=== PATIENT | male | born 1985 | race Two or more races ===

== ENCOUNTER 2022-08-04 07:51 | Emergency (ER) | payer MEDICAID, SELFPAY ==
--- NOTE | ~2022-08-04 | XR_ITS ---
EXAMINATION: XR CHEST CLINICAL INFORMATION: CPR performed. COMPARISON: 08/13/2016 chest radiograph. TECHNIQUE: Frontal view of the chest was obtained. FINDINGS: The lungs are clear. The heart and mediastinal structures are unremarkable. The visualized osseous structures are unremarkable. XR/XR chest 1V IMPRESSION: No acute cardiopulmonary process.
--- NOTE | 2022-08-04 07:59 | ED_ITS ---
HPI - Overdose General Chief Complaint: Overdose Stated Complaint: OD,NARCAN GIVEN W/GOOD RESULT PER EMS Time Seen by Provider: 08/04/22 07:58 Source: patient, family and EMS Mode of arrival: EMS Limitations: no limitations History of Present Illness HPI Narrative: Patient was smoking drugs and went unconscious, according to family he stopped breathing, family started compressions and pushed narcan up the nose. patient thought he was smoking crack. complaint: accidental overdose Onset (ago): minute(s) Timing confirmed by: family member Intent: other (wanted to get high) How Overdose Was Discovered: called 911 Context: Accidental Overdose: wanted to get high Related Data Allergies Allergy/AdvReac Type Severity Reaction Status Date / Time No Known Allergies Allergy Unverified 12/31/19 15:43 [No Known Allergies*] Review of Systems Review of Systems: Yes all other systems are reviewed and are negative Constitutional: Comments: nausea Neurologic: Denies Sensory deficit (Neuro) [facility] Social History Social History Alcohol intake: current Smoked in Last 30 Days: Yes Use of substances other than those prescribed or required for medical reasons: Yes Substance Use Type: Crack/Cocaine and Marijuana Substance Use Frequency: Chronic Longstanding Last Used Substance: Just Prior to Admission Advance Directives: No Physical Exam Vital Signs: Vital Signs: Last Vital Signs Temp 98.3 F 08/04/22 12:11 Pulse 68 08/04/22 12:11 Resp 20 08/04/22 12:11 BP 105/71 08/04/22 12:11 Pulse Ox 99 08/04/22 12:11 O2 Del Method Room Air 08/04/22 12:11 BMI result Body Mass Index 25.2 Const: Other: male lethargic but easily arousable Nutritional Appearance: average body habitus Orientation/consciousness: or iented to person and patient oriented x3 Limitations: no limitations HEENT: Head: Yes normal to inspection Ears: external ears normal General nose exam: Normal external nose present Mouth: Normal oral and palatal mucosa present and oropharynx normal Throat: Yes posterior oropharynx normal Eyes: Other: pinpoint pupils Neck: Other: supple Neck: Yes normal visual inspection Chest: Chest palpation & inspection: normal inspection of the chest Resp: Auscultation: clear to auscultation bilaterally Cardio: Jugular venous distension: no JVD Rate: regular rate Rhythm: regular rhythm Heart sounds: S1 normal heart sound present and S2 normal heart sound present GI: Inspection: Yes normal to inspection Palpation (GI): Soft to palpation, nontender and No hepatosplenomegaly present Auscultation: normal bowel sounds : General: Yes no CVA tenderness Back/Spine/Pelvis: Back: no CVA tenderness Skin: General skin exam: no rashes or lesions noted Neuro: General: oriented to person and patient oriented x3 Cranial nerves: Yes CN's II-XII intact bilaterally Motor exam (neuro): 5/5 motor strength present throughout Sensory Exam: No Sensory deficit (Neuro) Extrem: General: Yes normal to inspection Psych: Appearance: grossly normal Course Reevaluation(s) Reevaluation #1: still awaiting care team evaluation, patient resting comfortably easily arousable Time: 12:53 Reevaluation #2: TERRELL bates completed will dc home on narcan Time: 13:14 Medical Decision Making Differential Diagnosis Differential Diagnoses: The differential diagnosis associated with the presentation includes (opiate overdose, pneumothorax, rib fracture, pneumonmediastinum, polysubstance abuse) Admission/Observation Consideration of admission/observation: Escalation of care including admission/observation considered (Observation considered if the patient had became unarousable) Consult Healthcare Provider Management of the patient was discussed with: Behavioral Health Provider Lab Data [facility] Lab Attestation statement: I reviewed the patient's lab results. 08/04/22 08:19 08/04/22 08:19 Labs: Lab Results 08/04/22 08/04/22 Range/Units 08:19 08:19 WBC 6.1 (4.8-10.8) X10*3/uL RBC 4.63 (4.60-5.80) X10*6/uL Hgb 14.5 (14.0-18.0) g/dl Hct 41.6 L (42.0-52.0) % MCV 89.8 (80.0-98.0) fL MCH 31.3 (27.0-33.0) pg MCHC 34.9 (31.0-36.0) g/dl RDW 12.0 (11.0-16.0) % Plt Count 180 (160-400) X10*3/uL MPV 10.9 (9.4-12.4) fL Immature Gran % (Auto) 0.3 (0.0-0.4) % Neut % (Auto) 65.0 (45-73) % Lymph % (Auto) 23.0 (20-40) % [place] % (Auto) 9.7 (2-11) % Eos % (Auto) 1.5 (0-4) % Baso % (Auto) 0.5 (0-2) % Lymph # (Auto) 1.4 (1.2-4.9) X10*3/uL [place] # (Auto) 0.6 (0.1-1.2) X10*3/uL Eos # (Auto) 0.1 (0.0-0.4) X10*3/uL Baso # (Auto) 0.0 (0.0-0.2) X10*3/uL Abs Immat Gran (auto) 0.02 (0.00-0.03) X10*3/uL Absolute Neuts (auto) 4.0 (2.0-8.3) x10*3/uL Absolute Nucleated RBC 0.000 (0.0-0.012) X10*3/uL Nucleated RBC % (auto) 0.0 (0.0-0.2) /100WBC Sodium 137 (135-145) mmol/L Potassium 3.9 (3.3-5.1) mmol/L Chloride 102 (96-108) mmol/L Carbon Dioxide 27 (22-29) mmol/L Anion Gap 12 (12-20) BUN 11 (9-16) mg/dL Creatinine 1.21 (0.5-1.4) mg/dL Estim Creat Clear Calc 91.6 Estimated GFR > 60 Random Glucose 139 H (60-115) mg/dL Calcium 9.1 (8.4-10.2) mg/dL Ethyl Alcohol < 10 mg/dL Independent Interpretation I performed an independent interpretation of an: EKG (sinus 72, Intraventricular conduction delay, jpoint elevation) and Plain X-Ray (CXR no pneumothorax, no pneumomediastinum) Independent Historian Clinical information obtained from an independent historian. History obtained from or confirmed by: Other (girlfriend and EMS gave history) Chronic Conditions Patient?s care impacted by: Other (polysubstance abuse) Social Determinants Patient?s care significantly limited by Social Determinants of Health including: Alcoholism and drug addiction in family Discharge Plan Discharge Clinical Impression: Drug overdose, Poisoning by opiate or related narcotic Patient Disposition: Home, Self-Care Instructions: Adult Overdose (ED) Referrals: Physician,None [Primary Care Provider] - 3 days (please go to detox)
[2022-08-04 08:01] VITALS: BP 116/84; BP 178/78; PULSE 59; PULSE 81; RESP 18; TEMP 36.8; O2SAT 100; O2SAT 99; BMI 25.2
--- NOTE | 2022-08-04 08:04 | ECG_ITS ---
Test Reason : OVERDOSE Blood Pressure : / mmHG Vent. Rate : 072 BPM Atrial Rate : 072 BPM P-R Int : 162 ms QRS Dur : 096 ms QT Int : 440 ms P-R-T Axes : 068 -14 037 degrees QTc Int : 481 ms Normal sinus rhythm Prolonged QT Abnormal ECG When compared with ECG of 13-AUG-2016 15:23, No significant change was found Referred By: Juan Daniel Leal Electronically Signed By:KIMBERLY BA
[2022-08-04 08:22] LABS: MANUAL DIFF FLAG NO
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
[2022-08-04 08:33] LABS: Basophils Percent Auto 0.5 % (0-2); Eosinophils Absolute Auto 0.1 X10*3/uL (0.0-0.4); Eosinophils Percent Auto 1.5 % (0-4); Hematocrit 41.6 % (42.0-52.0); Hemoglobin 14.5 g/dl (14.0-18.0); Imm Gran Abs Auto 0.02 X10*3/uL (0.00-0.03); Imm Gran Pct Auto 0.3 % (0.0-0.4); Lymphocytes Absolute Auto 1.4 X10*3/uL (1.2-4.9); Mean Corpuscular HGB Conc 34.9 g/dl (31.0-36.0); Mean Corpuscular Hemoglobin 31.3 pg (27.0-33.0); Mean Corpuscular Volume 89.8 fL (80.0-98.0); Mean Platelet Volume 10.9 fL (9.4-12.4); Monocytes Absolute Auto 0.6 X10*3/uL (0.1-1.2); Monocytes Percent Auto 9.7 % (2-11); Platelet Count 180 X10*3/uL (160-400); Red Blood Count 4.63 X10*6/uL (4.60-5.80); White Blood Count 6.1 X10*3/uL (4.8-10.8)
[2022-08-04 08:36] LABS: Anion Gap 12 (12-20); Blood Urea Nitrogen 11 mg/dL (9-16); Calcium 9.1 mg/dL (8.4-10.2); Carbon Dioxide 27 mmol/L (22-29); Chloride 102 mmol/L (96-108); Creatinine Clr Calc Pharmacy 91.6; Estimated Glomerular Filt Rate > 60; Ethanol < 10 mg/dL; Glucose Random 139 mg/dL (60-115); Potassium 3.9 mmol/L (3.3-5.1); Sodium 137 mmol/L (135-145)
[2022-08-04 10:40] VITALS: BP 123/76; PULSE 62; RESP 15; TEMP 36.6; O2SAT 98
[2022-08-04 12:11] VITALS: BP 105/71; PULSE 68; RESP 20; TEMP 36.8; O2SAT 99
--- NOTE | 2022-08-04 12:47 | HO.SUDE ---
CARE Team met with patient in ED room 8 for substance use evaluation after he was brought in by ambulance this morning following an accidental opioid overdose. He was sleeping but woke hearing his name spoken, agreed to interview and was able to stay alert only long enough to answer a few questions. Needed to be approached a second time to finish. -Reported the only drug he uses is crack cocaine, occasional alcohol and did not intentionally use opiates -Age of first use~23 yrs old -Daily cocaine use -Only periods of abstinence are when he is incarcerated -Today was his first accidental overdose? -Patient denied having a mental illness such as depression, anxiety, bipolar disorder, psychosis, chart review indicated that patient took an intentional overdose of Seroquel and Zoloft in 2017 needed to be intubated, subsequently psychiatrically hospitalized at [facility]. Stated nothing like that has ever happened before or after that event which he said was impulsive and was under the influence of alcohol and other drugs, feels that being hospitalized was a bad experience.? -Provided education about crisis and other support options here at [facility] [place] [facility]. -Lives with his girlfriend and has a supportive local family. -Has a family member that works as a local therapist and patient would reach out to her if he needed help or resourcesWas informed that a Recovery pricing/signage team member will also check in with him. Provider Dr. Leal updated
[2022-08-04] MEDS: Naloxone HCl Nasal TAKE HOME 4 MG SPRAY NOSTRILALT (13:26)
--- NOTE | 2022-08-04 13:27 | MHC.RECOVSUP ---
Met with pt in ED8 to review resources and potential ATS. Pt is not interested in ATS or recovery coaches. Pt has no questions or concerns at this time.
== END 2022-08-04 13:48 | disposition home or self-care (01) ==
PROVIDERS: Emergency Provider Emergency Medicine
DX: R40.4 Transient alteration of awareness (principal); T40.2X1A Poisoning by other opioids, accidental (unintentional), initial encounter; Y92.009 Unspecified place in unspecified non-institutional (private) residence as the place of occurrence of the external cause
CPT/HCPCS: 36415; 71045; 80048; 82077; 85025; 93005; 99285

== ENCOUNTER 2023-01-18 13:23 | Emergency (ER) | payer SELFPAY ==
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
[2023-01-18 13:41] VITALS: BP 138/88; PULSE 68; RESP 16; TEMP 36.8; O2SAT 98; BMI 24.4
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
--- NOTE | 2023-01-18 14:22 | PC.NURSE ---
ulnar gutter splint applied by tech.
--- NOTE | 2023-01-18 14:38 | PC.NURSE ---
pt medicated per provider order.
--- NOTE | 2023-01-18 15:42 | PC.NURSE ---
pt pain level reassessed - states that his pain level did not decrease despite medication administration.
== END 2023-01-18 16:06 | disposition home or self-care (01) ==
PROVIDERS: Emergency Provider Emergency Medicine
DX: S52.602A Unspecified fracture of lower end of left ulna, initial encounter for closed fracture (principal); Y00.XXXA Assault by blunt object, initial encounter; Y93.9 Activity, unspecified; Y92.9 Unspecified place or not applicable; Y99.9 Unspecified external cause status
CPT/HCPCS: 29125; 73090; 73110; 99283

== ENCOUNTER 2023-02-01 13:45 | Outpatient (REF) | payer SELFPAY | END 2023-02-01 13:46 | disposition home or self-care (01) | LOC: HO.HOSX 13:45 | PROVIDERS: Visit Provider Physician Assistant | DX: Z13.89 Encounter for screening for other disorder (principal) ==

== ENCOUNTER 2023-05-28 14:14 | Emergency (ER) | payer MEDICAID, SELFPAY ==
[2023-05-28 14:46] VITALS: BP 122/81; PULSE 91; O2SAT 99; BMI 32.8
--- NOTE | 2023-05-28 14:49 | ED_ITS ---
HPI - Overdose General Chief Complaint: Overdose Stated Complaint: overdose Time Seen by Provider: 05/28/23 14:48 Source: patient and EMS Mode of arrival: EMS Limitations: no limitations History of Present Illness HPI Narrative: 37-year-old male with a history of crack cocaine use disorder and accidental opiate overdose who presents emergency department for evaluation of accidental opiate overdose. According to the paramedics, the patient was found by bystanders, lying on the ground outside of a liquor store. Police were 1st responders and gave the patient 8 mg of intranasal Narcan and he woke up. Patient did tell the paramedics that he use crack cocaine and did drink fireball whiskey but does not have any memory of passing out. Patient told me that he has used crack cocaine in the past and he did have an accidental overdose from using crack cocaine which was most likely contaminated with narcotic/opiates. Symptoms patient has no complaints at this time. He is competent to make decisions and he does not want to stay for your cardiac and respiratory/O2 saturation monitoring. Related Data Previous Rx's Medication Instructions Recorded oxycodone 5 mg tablet 5 mg PO Q8H PRN severe pain (scale 01/18/23 score 7-10) #6 tabs Allergies Allergy/AdvReac Type Severity Reaction Status Date / Time No Known Allergies Allergy Verified 05/28/23 14:46 [No Known Allergies*] Review of Systems Review of Systems: Yes all other systems are reviewed and are negative [facility] Past Medical History [facility] Narrative: Past medical history: None. Social history: He does smoke cigarettes. He does drink alcohol frequently he does admit to drinking whiskey prior to losing consciousness today. Your states that he only uses crack cocaine and denies opiate use. Social History Social History Alcohol intake: current Substance Use Type: Crack/Cocaine and Marijuana Advance Directives: No Advance Directives Information Provided: No Physical Exam Vital Signs: Vital Signs: BMI result Body Mass Index 32.8 Patient refused vital signs Exam: General: Awake, alert in no distress, competent and able to make decision Head: Normocephalic, atraumatic EENT: PERRL, Lids normal, sclera normal, conjunctiva normal, nose normal , ears normal, throat without erythema or exudates Neck: Supple, no adenopathy Lung: breath sounds symmetric, no wheezing, rales or rhonchi Chest: symmetric movement, patient has an area of erythema and ecchymosis to his sternum which is tender to palpation-I suspect this is secondary to bystander CPR Heart: regular rate and rhythm, normal S1, S2 no murmurs or rubs Abdomen: soft, non-tender, nondistended, normal bowel sounds Back: no vertebral tenderness, no CVAT Extremities: no deformities, moves all extremities symmetrically Neuro: Awake, alert, oriented, normal speech, cranial nerves intact, moves all extremities symmetrically Psych: Patient is cooperative but he is agitated, he does not want to be here and is requesting to leave against medical advice Medications Administered Discontinued Medications Generic Name Dose Route Start Last Admin Trade Name Freq PRN Reason Stop Dose Admin Naloxone HCl 8 mg 05/28/23 14:52 05/28/23 14:58 Naloxone Hcl Nasal Take Home 4 Mg [place] NOSTRILALT 05/28/23 14:53 8 mg ONCE ONE Administration Medical Decision Making Medical Decision Making MDM Narrative: 37-year-old male with a history of crack cocaine use and accidental opiate overdose who presents emergency department for evaluation of an accidental opiate/narcotic overdose after smoking crack cocaine. He was found unresponsive lying on the ground outside of a liquor store, he may have gotten bystander CPR since he does erythema and ecchymosis over his sternum. His exam is otherwise unremarkable. Differential diagnosis: Includes was not limited to opiate overdose, alcohol intoxication, arrhythmia, electrolyte abnormalities, anemia 15:00 Patient is competent to make decisions, he does not want to stay for cardiac and respiratory monitoring despite my discussion of potential if the opiate that he took lasts longer than the Narcan that was given to him. He also refused to stay for a SUDE exam. I did tell him he should get some help with his crack cocaine use disorder. He was sent home with intranasal Narcan and I told him that he should not use any street drugs unless he is with a sober person that can save his life with the intranasal Narcan in the event that he passes out. Admission/Observation Consideration of admission/observation: Escalation of care including admission/observation considered Prescription Management I considered prescription management with: Other (Intranasal Narcan 8 mg pack given to him at discharge) Chronic Conditions Patient?s care impacted by: Other (Crack cocaine use disorder) Discharge Plan Discharge Clinical Impression: Crack cocaine use Opiate or related narcotic overdose Qualifiers: Encounter type: initial encounter Injury intent: accidental or unintentional Q ualified Code(s): T40.601A - Poisoning by unspecified narcotics, accidental (unintentional), initial encounter Patient Disposition: Left Against Medical Advice Additional Instructions: Your found unresponsive outside of a liquor store. Police gave you 8 mg of intranasal Narcan in you woke up The crack cocaine the used today was most likely contaminated with fentanyl or another opiate/narcotic medication that caused her to pass out. I wanted you to stay in the emergency department for at least 2 hours so that we can monitor you, sometimes the opiate/narcotic that you accidentally took will last longer than the Narcan. If this is the case, if you leave the emergency department he may from an overdose. You understood this discussion in you still want to leave. Therefore we are letting you leave against medical advice. Your are being discharged home with intranasal Narcan. If you are going to continue to use heroin, you should make sure that there is a sober person with you that is not using drugs and that this person can administer intranasal Narcan in the event that you stop breathing. If you change your mind and you want us to monitor you please return to the emergency department or if you want help with your crack cocaine use disorder we can also help you. Follow-up with your doctor in 2 days. Please return to the emergency department if your symptoms get worse or if you develop any symptoms that are concerning to you. Prescriptions: No Action oxycodone 5 mg tablet 5 mg PO Q8H PRN (Reason: severe pain (scale score 7-10)) Qty: 6 0RF Rx Instructions: Partial Fill upon patient request. Stand Alone Forms: Against Medical Advice
--- NOTE | 2023-05-28 14:53 | PC.NURSE ---
ED provider bedside. pt refusing to change into hospital attire/for vitals to be taken/to be placed on the aircraft cabin cleaner. pt verbalizes that he does not want to stay here to be seen and is stating that he wants to go home. pt agrees to signing AMA. [email or web address] will be provider upon ED d/c.
[2023-05-28] MEDS: Naloxone HCl Nasal TAKE HOME 4 MG SPRAY 8 MG NOSTRILALT (14:58)
--- NOTE | 2023-05-28 15:05 | PC.NURSE ---
take home narcan provided to pt.
== END 2023-05-28 15:07 | disposition left against medical advice (07) ==
PROVIDERS: Emergency Provider Emergency Medicine Emergency Medical Services
DX: T40.5X1A Poisoning by cocaine, accidental (unintentional), initial encounter (principal); L53.8 Other specified erythematous conditions; Y92.89 Other specified places as the place of occurrence of the external cause
CPT/HCPCS: 99282; 99283